=== PATIENT | male | born 1970 | race Caucasian/White ===

== ENCOUNTER 2023-08-02 13:41 | Outpatient (CLI) | payer OTHER, SELFPAY ==
--- NOTE | ~2023-08-02 | CT_ITS ---
EXAMINATION: CT sinus wo con DATE: 08/02/2023 14:01 INDICATION: Chronic maxillary sinusitis TECHNIQUE: Computed tomography (CT) of the paranasal sinuses was performed without intravenous contra st. The dose-length product was 304.88 mGy-cm. Automated exposure control and iterative reconstructio n technique were employed. COMPARISON: None FINDINGS: There are multiple small mucous retention cysts of the maxillary sinuses. There is mild muc osal thickening of the frontal, ethmoid, sphenoid and maxillary sinuses. Mastoids are pneumatized. Ri ghtward nasal septal deviation. 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 Ostiomeatal units are patent. IMPRESSION: 1. Moderate sinusitis with multiple small mucous retention cysts of the maxillary sinuses. Reviewed, dictated and finalized at location B. [facility] [employer] [employer] IMPRESSION: 1. Moderate sinusitis with multiple small mucous retention cysts of the maxilla ry sinuses.
== END 2023-08-02 13:42 | disposition home or self-care (01) ==
PROVIDERS: PCP Physician Assistant; Visit Provider Otolaryngology
DX: J32.2 Chronic ethmoidal sinusitis (principal); J34.2 Deviated nasal septum; J34.3 Hypertrophy of nasal turbinates; J32.0 Chronic maxillary sinusitis
CPT/HCPCS: 70486